=== PATIENT | male | born 1970 | race Caucasian/White ===

== ENCOUNTER 2024-05-31 12:55 | Outpatient (REF) | payer OTHER, SELFPAY ==
--- NOTE | ~2024-05-31 | XR_ITS ---
EXAMINATION: Left hip. CLINICAL INDICATION: Left hip pain. TECHNIQUE: AP pelvis and left hip 2 views. COMPARISON: None. FINDINGS: AP and frog-leg views left hip reveals normal hip joint space without bony erosive changes or loose bodies. No acute fracture or dislocation seen. AP pelvis exam reveals right hip joint and SI joint space is normal. There is mild degenerative disc changes with spondylosis at L5-S1 disc level. No acute fracture or lytic process involving the pelvic bones. The soft tissues are normal. XR/XR hip LT w PEL 1V IMPRESSION: Unremarkable left hip and AP pelvis exam. Electronically signed by: Jatinder Delgado MD 06/01/2024 09:59 AM EST
--- NOTE | ~2024-05-31 | XR_ITS ---
EXAMINATION: XR LUMBOSACRAL SPINE CLINICAL INFORMATION: M54.50 - Low back pain, unspecified COMPARISON: None available. TECHNIQUE: 6 views of the lumbar spine, inclusive of flexion and extension views, were obtained. FINDINGS: The vertebral bodies and posterior elements are normal. The disc spaces are preserved and the vertebral alignment is normal. There is mild ventral spondylosis throughout lumbar spine. No lytic or sclerotic process seen. The paraspinal soft tissues are normal. XR/XR lumbar spine 6V w bending IMPRESSION: Mild ventral spondylosis lumbar spine. No visible acute fracture, dislocation or subluxation seen. Electronically signed by: Jatinder Delgado MD 06/01/2024 09:50 AM EST
== END 2024-05-31 12:56 | disposition home or self-care (01) ==
LOC: HO.XRAY 12:55
PROVIDERS: PCP Internal Medicine; Referring Provider Physician Assistant Medical; Visit Provider Registered Nurse Emergency
DX: M54.50 Low back pain, unspecified (principal); M25.552 Pain in left hip
CPT/HCPCS: 72114; 73502

== ENCOUNTER 2024-05-31 12:55 | Outpatient (AMB) | payer OTHER, SELFPAY ==
--- NOTE | 2024-05-31 12:57 | A.OFFVIS_ITS ---
Vital Signs 05/31/24 13:07 Height 6 ft 3 in Weight 322 lb BMI 40.2 BP 173/104 H Blood Pressure Location Lt brachial Position Sitting Pulse 90 Pulse Source Pulse Oximeter Pulse Oximetry (%) 98 Oxygen Delivery Method Room Air Intake Visit Reasons: Low back pain Intake Note: Pain today 3/10 Pediatric Physical Therapist Required: No Accompanied by: Self / Same As Patient Allergies No Known Allergies Allergy (Verified 05/31/24 13:37) HPI Comments Details: Yaya is a very pleasant 53-year-old male presents to the office today evaluation and management of his chronic lower back pain He endorses many years of midline lower back pain without radiation down either lower extremity. Diagnosed in the past with psoriatic arthritis and was told that had arthritis in his lower back. Approximately 4 months ago developed pain left lower back with radiation posteriorly down the thigh to the ankle and around to the groin. At times it feels like his hip will lock up. Endorses tightness in the quadriceps and hamstrings Pain today is rated as a 6/10, constant Denies red flag symptoms including new loss of bowel, bladder or saddle anesthesia He does endorse some burning, numbness, tingling of the left lower extremity, this can be elicited with forward flexion Recent MRI was reviewed, results as per below. Denies recent x-ray Denies recent attempts at physical therapy. PCP gave him an order but he was waiting to review MRI prior to starting. Attempted chiropractor manipulation 1 month ago with no improvement. Denies recent attempts at acupuncture, massage or previous attempts at injections No improvement with ibuprofen, Tylenol, methocarbamol. In terms of muscle damage condition is described as aching, stabbing, sharp, burning, throbbing, cramping, dull, sore, tiring, tight, squeezing pins and needles Pain is negatively impacting patient's sleep, ability to perform activities of daily living, normal functioning, work, recreational activities Denies current use of blood thinners Denies implantable devices, pacemaker or defibrillator [facility] Medical History (Updated 05/31/24 @ 15:38 by Loren Berry APRN, PHARMACOVIGILANCE SAFETY EXPERT) DM type 2 (diabetes mellitus, type 2) Tophaceous gout Psoriasis Tobacco abuse Hypertension Social History (Updated 05/31/24 @ 13:09 by Daja Kim) Alcohol intake: current Alcohol type: beer and hard liquor Patient Tobacco Use Status: Former Tobacco user Review of Systems Const All systems reviewed & are unremarkable except as noted in HPI and below Physical Exam Vital Signs: Last Vital Signs Pulse 90 05/31/24 13:07 BP 173/104 H 05/31/24 13:07 Pulse Ox 98 05/31/24 13:07 Oxygen Delivery Method Room Air 05/31/24 13:07 BMI result Body Mass Index 40.2 General: awake, alert, oriented. Answers questions appropriately. Fully engaged in examination. Skin: warm, dry, intact HEENT: Normocephalic. Hearing intact. Cardiac: External chest normal in appearance. Respiratory: No cough, audible wheezing or stridor. Abdomen: without gross distension. MS: No obvious swelling or deformities. Able to stand on bilateral tiptoes and bilateral heels.? Able to transition from sit to stand unassisted. Ambulates with bilaterally normal heel strike and toe off Tenderness over left PSIS. [place] positive on the left, thigh thrust negative on the left, SI compression inconclusive Some discomfort with internal/external rotation of the left hip Tenderness over midline lumbar vertebrae and lumbar paraspinal muscles SLR negative bilaterally Bilateral lower extremity strength 5/5 Lumbar range of motion preserved Facet loading positive bilaterally Neurological: Oriented to person, place, time and situation. Thought process intact. No gait abnormalities appreciated. Psychiatric: Appropriate mood and affect. Good judgment and insight. Results Reviewed Results Reviewed: 05/15/24 MRI LS FINDINGS: FINDINGS: Straightening of normal lumbar lordosis. No findings of fracture or significant listhesis. There is mild loss of intervertebral disc space height L3-L4 and loss of intervertebral disc space height L5-S1. Mixed L5-S1 endplate Modic type changes. Small subchondral cyst inferior endplate of L5. There is marginal osteophyte formation L3-L4 an L5-S1. Mild lumbar facet arthrosis. Conus and cauda equina of normal appearance. Conus tip T12-L1. No acute paraspinal abnormality identified. Examination through the L1-L2 and L2-L3 intervertebral levels without significant central stenosis or foraminal narrowing. Examination through the L3-L4 intervertebral level revealing facet arthrosis and mild prominence of ligamentum flavum. Posterior disc osteophyte. Mild associated central stenosis with bilateral lateral recess encroachment. Mild RIGHT foraminal narrowing. Moderate LEFT foraminal narrowing. Examination through the L4-L5 intervertebral level revealing mild facet arthrosis and prominence ligamenta flavum. Small posterior disc osteophyte. No significant central stenosis. No significant foraminal narrowing. Examination through the L5-S1 intervertebral level revealing mild facet arthrosis. There is no central stenosis. There is bilateral lateral recess encroachment. Mild to moderate bilateral foraminal narrowing. IMPRESSION: Spondylotic changes and facet arthrosis. Straightening of normal lumbar lordosis. No findings of fracture or significant listhesis. L3-L4 facet arthrosis and mild prominence of ligamentum flavum. Posterior disc osteophyte. Mild associated central stenosis with bilateral lateral recess encroachment. Mild RIGHT foraminal narrowing. Moderate LEFT foraminal narrowing. L4-L5 mild facet arthrosis and prominence ligamenta flavum. Small posterior disc osteophyte. No significant central stenosis. No significant foraminal narrowing. L5-S1 mild facet arthrosis. There is no central stenosis. There is bilateral lateral recess encroachment. Mild to moderate bilateral foraminal narrowing Assessment & Plan Assessment & Plan (1) Left leg paresthesias: Code(s): R20.2 - Paresthesia of skin Category: Medical (2) Lower back pain: Code(s): M54.50 - Low back pain, unspecified Category: Medical (3) Left hip pain: Code(s): M25.552 - Pain in left hip Category: Medical (4) Lumbar spondylosis: Code(s): M47.816 - Spondylosis without myelopathy or radiculopathy, lumbar region Category: Medical Plan X-rays ordered for evaluation EMG order to evaluate paresthesia of the left lower extremity New prescription for Celebrex 50 mg p.o. twice daily. Patient advised on cautions for use. Take with food, do not take with any other nonsteroidal anti- inflammatory medications. Patient declines alternative muscle relaxer at this time. He was advised to reach out to the office if pain worsens and he would like prescription for tizanidine sent to the pharmacy. Continue with plan for physical therapy as ordered by primary care doctor All questions and concerns were answered, patient agrees with the plan. Follow up after PT, sooner if needed Orders: Orders XR lumbar spine 6V w bending Today M54.50 - Low back pain, unspecified NE electromyogram (EMG) Today R20.2 - Paresthesia of skin XR hip LT w PEL 1V Today M25.552 - Pain in left hip Medications: New celecoxib (Celebrex) 50 mg PO BID 60 caps 2RF Coding Level of Care Code New Pt Level 4 (81899) Complex EM visit Add On G2211 Diagnoses Left leg paresthesias R20.2 Lower back pain M54.50 Left hip pain M25.552 Lumbar spondylosis M47.816
[2024-05-31 13:07] VITALS: BP 173/104; PULSE 90; O2SAT 98; BMI 40.2
== END 2024-05-31 14:05 | disposition home or self-care (01) ==
PROVIDERS: PCP Internal Medicine; Referring Provider Physician Assistant Medical; Visit Provider Registered Nurse Emergency
DX: R20.2 Paresthesia of skin (principal); M54.50 Low back pain, unspecified; M25.552 Pain in left hip; M47.816 Spondylosis without myelopathy or radiculopathy, lumbar region
CPT/HCPCS: 99204

== ENCOUNTER → 2024-05-31 14:03 | Outpatient (BNV) | payer OTHER, SELFPAY | PROVIDERS: PCP Internal Medicine; Referring Provider Physician Assistant Medical; Visit Provider Radiology Diagnostic Radiology | DX: M54.50 Low back pain, unspecified (principal); M25.552 Pain in left hip | CPT/HCPCS: 72114; 73502 ==